=== PATIENT | female | born 1945 | race Caucasian/White ===

== ENCOUNTER 2018-04-14 11:10 | Emergency (ER) | payer MEDICARE, OTHER ==
[~2018-04-14] VITALS: Ht 157.5 cm; Wt 67.8 kg
[~2018-04-14 11:10] MED LIST: ESTR1TAB37 PO; GABA300C10 PO; METH750T2 PO; SOLI10TA2 PO; TRAM50TA2 PO
[2018-04-14] MEDS ORDERED: SODIUM CHLORIDE FLUSH 10ML SYR IVF ONE (12:00)
[2018-04-14 12:18] LABS: BASOPHILS # (AUTO) 0.05 x10^3/uL (0-0.1); BASOPHILS % (AUTO) 1 % (0-1); EOSINOPHILS # (AUTO) 0.09 x10^3/uL (0-0.4); EOSINOPHILS % (AUTO) 2 % (1-7); LYMPHOCYTES # (AUTO) 1.27 x10^3/uL (1-3.4); LYMPHOCYTES % (AUTO) 24 % (22-44); MD NO; MEAN CORPUSCULAR HEMOGLOBIN 32.7 pg (27.0-34.8); MEAN CORPUSCULAR VOLUME 96.1 fL (80-100); MEAN PLATELET VOLUME 8.3 fL (7.4-10.4); MONOCYTES # (AUTO) 0.48 x10^3/uL (0.2-0.8); MONOCYTES % (AUTO) 9 % (2-9); NEUTROPHILS # (AUTO) 3.34 x10^3/uL (1.8-6.8); NEUTROPHILS % (AUTO) 64 % (42-75); PLATELET COUNT 253 x10^3/uL (130-400); RED BLOOD COUNT 4.84 x10^6/uL (3.82-5.3)
[2018-04-14 12:29] LABS: INTERNATIONAL NORMALIZED RATIO 1.07 (0.93-1.1); PROTHROMBIN TIME 11.3 Seconds (9.6-11.5)
[2018-04-14 12:33] LABS: ALBUMIN 3.4 g/dL (3.4-5.0); ANION GAP 7 mmol/L (5-15); CALCIUM 8.8 mg/dL (8.5-10.1); CHLORIDE 112 mmol/L (98-107)
[2018-04-14 12:37] LABS: ALANINE AMINOTRANSFERASE 48 U/L (12-78); ALKALINE PHOSPHATASE 87 U/L (45-117); BILIRUBIN,TOTAL 0.6 mg/dL (0.2-1.0); CREATININE 1.02 mg/dL (0.55-1.02); TOTAL PROTEIN 6.6 g/dL (6.4-8.2)
[2018-04-14] MEDS ORDERED: OMNIPAQUE 350 MG/ML, 100ML BOTTLE ONE (13:08)
[2018-04-14 13:26] VITALS: BP 173/76
== END 2018-04-14 13:50 | disposition other institution (70) ==
LOC: ED 13:18
DX: R19.7 Diarrhea, unspecified (principal); R10.31 Right lower quadrant pain; R10.11 Right upper quadrant pain; R10.33 Periumbilical pain; Z90.49 Acquired absence of other specified parts of digestive tract; Z90.710 Acquired absence of both cervix and uterus
CPT/HCPCS: 36415; 74177; 80053; 83690; 85025; 85610; 85730; 99284; Q9967

== ENCOUNTER → 2018-04-30 | Outpatient (CLI) | payer MEDICARE, OTHER ==
[2018-04-30 15:10] LABS: HCT (SEDRATE) 46.9 % (34.6-47.8)
[2018-05-04 14:22] LABS: ANA SCREEN NEGATIVE (Negative)
== END | disposition home or self-care (01) ==
LOC: LAB 14:29
PROVIDERS: ATTEND Nurse Practitioner
DX: M05.9 Rheumatoid arthritis with rheumatoid factor, unspecified (principal)
CPT/HCPCS: 36415; 84550; 85651; 86038; 86200; 86431

== ENCOUNTER → 2019-04-07 | Outpatient (CLI) | payer MEDICARE, OTHER ==
[~2019-04-07] MED LIST changes: +REGADENOSON 0.4 MG/5 ML SYRINGE ONE
== END | disposition home or self-care (01) ==
LOC: CFH 06:53
PROVIDERS: ATTEND Internal Medicine Cardiovascular Disease
DX: I08.8 Other rheumatic multiple valve diseases (principal); I25.2 Old myocardial infarction; I10 Essential (primary) hypertension
CPT/HCPCS: 78452; 93017; 93306; A9502; J2785

== ENCOUNTER → 2019-05-19 | Outpatient (CLI) | payer MEDICARE, OTHER ==
[~2019-05-19] MED LIST changes: -REGADENOSON 0.4 MG/5 ML SYRINGE ONE
== END | disposition home or self-care (01) ==
LOC: RAD 11:57
PROVIDERS: ATTEND Physician Assistant Medical
DX: J84.10 Pulmonary fibrosis, unspecified (principal)
CPT/HCPCS: 71045; 78582; A9540; A9558

== ENCOUNTER → 2020-04-02 | Outpatient (CLI) | payer MEDICARE, OTHER ==
[~2020-04-02] MED LIST changes: +AMLO-150 PO; +FLUT1AER INH; +HYDR-3653 PO; +LISI-170 PO; +OXYB5TAB10 PO
== END | disposition home or self-care (01) ==
LOC: RAD 10:12
PROVIDERS: ATTEND Internal Medicine
DX: R91.8 Other nonspecific abnormal finding of lung field (principal); J84.10 Pulmonary fibrosis, unspecified
CPT/HCPCS: 71250

== ENCOUNTER 2020-04-04 08:16 | Day surgery (SDC) | payer MEDICARE, OTHER ==
[~2020-04-04] VITALS: Ht 154.9 cm; Wt 68.5 kg
[~2020-04-04 08:16] MED LIST changes: +ACETAMINOPHEN 325 MG TABLET PO PRN; -AMLO-150 PO; +EPHEDRINE 50 MG/ML, 1ML IVPush PRN; -FLUT1AER INH; -HYDR-3653 PO; +LABETALOL 5MG/ML, 20ML IV PRN; -LISI-170 PO; +ONDANSETRON 2MG/ML, 2ML IVPush PRN; -OXYB5TAB10 PO; +OXYcodone 5 MG/5 ML ORAL.SOL UDC PO PRN; +PROMETHAZINE 25 MG/ML, 1ML IVPush PRN; +hydrALAzine 20 MG/ML, 1ML IV PRN
[2020-04-04] MEDS ORDERED: PROPOFOL 50 ML ONE ×2 (09:21→11:10)
[2020-04-04] MEDS ORDERED: FENTANYL PF 100 MCG/2ML ONE ×2 (09:21→12:47)
[2020-04-04] MEDS ORDERED: ROCURONIUM 10MG/ML,5ML ONE (09:22)
[2020-04-04] MEDS ORDERED: DEXAMETHASONE 4 MG/ML, 1ML ONE (09:22)
[2020-04-04] MEDS ORDERED: SUCCINYLCHOLINE 20 MG/ML, 10ML ONE (09:22)
[2020-04-04] MEDS ORDERED: ONDANSETRON 2MG/ML, 2ML ONE (09:22)
[2020-04-04] MEDS ORDERED: PROPOFOL 10 MG/ML, 20ML ONE (09:22)
[2020-04-04] MEDS ORDERED: FLUT1AER INH (09:27)
[2020-04-04] MEDS ORDERED: HYDR-3653 PO (09:27)
[2020-04-04] MEDS ORDERED: OXYB5TAB10 PO (09:27)
[2020-04-04] MEDS ORDERED: LACTATED RINGERS 1,000 ML IV SCH (09:30)
[2020-04-04] MEDS ORDERED: CHLORHEXIDINE 15 ML UDC MM ONE (09:30)
[2020-04-04 09:53] VITALS: BP 123/74
[2020-04-04] MEDS ORDERED: LISI-170 PO (09:53)
[2020-04-04] MEDS ORDERED: AMLO-150 PO (09:53)
[2020-04-04] MEDS ORDERED: SUGAMMADEX 200 MG/2 ML IVPush ONE (10:45)
[2020-04-04] MEDS ORDERED: PHENYLEPHRINE 10 MG/ML ONE (11:17)
[2020-04-04] MEDS ORDERED: LIDOCAINE 2%, 20ML ONE (12:42)
[2020-04-04] MEDS ORDERED: LIDOCAINE GEL 2%, 5ML ONE (12:42)
[2020-04-04] MEDS ORDERED: OXYcodone 5 MG/5 ML ORAL.SOL UDC ONE (12:47)
[2020-04-04] MEDS: FENTANYL PF 100 MCG/2ML IV PRN ×2 (12:54→13:05)
[2020-04-16] MEDS ORDERED: DOXY100T PO (15:14)
[2020-04-16] MEDS ORDERED: AMOX1TAB12 PO (15:14)
[2020-04-16] MEDS ORDERED: HYDR-3240 PO (15:18)
== END 2020-04-04 14:25 | disposition home or self-care (01) ==
LOC: OUT 08:16
PROVIDERS: ATTEND Internal Medicine
DX: R59.1 Generalized enlarged lymph nodes (principal); J18.9 Pneumonia, unspecified organism; J45.909 Unspecified asthma, uncomplicated; Z20.828 Contact with and (suspected) exposure to other viral communicable diseases; Z79.891 Long term (current) use of opiate analgesic; Z79.899 Other long term (current) drug therapy; Z87.891 Personal history of nicotine dependence; Z88.1 Allergy status to other antibiotic agents
CPT/HCPCS: 31624; 31627; 31628; 31652; 71045; 88112; 88172; 88173; 88177; 88305; J0330; J1100; J2370; J2704; J3010; J7120; U0003; J2405

== ENCOUNTER → 2020-04-12 | Outpatient (CLI) | payer MEDICARE, OTHER ==
[~2020-04-12] MED LIST changes: -ACETAMINOPHEN 325 MG TABLET PO PRN; +AMLO-150 PO; -EPHEDRINE 50 MG/ML, 1ML IVPush PRN; +FLUT1AER INH; +HYDR-3653 PO; -LABETALOL 5MG/ML, 20ML IV PRN; +LISI-170 PO; -ONDANSETRON 2MG/ML, 2ML IVPush PRN; +OXYB5TAB10 PO; -OXYcodone 5 MG/5 ML ORAL.SOL UDC PO PRN; -PROMETHAZINE 25 MG/ML, 1ML IVPush PRN; -hydrALAzine 20 MG/ML, 1ML IV PRN
== END | disposition home or self-care (01) ==
LOC: PETCFH 08:28
PROVIDERS: ATTEND Internal Medicine
DX: R91.8 Other nonspecific abnormal finding of lung field (principal); J84.10 Pulmonary fibrosis, unspecified; J98.11 Atelectasis
CPT/HCPCS: 78815; A9552

== ENCOUNTER → 2020-10-08 | Outpatient (CLI) | payer MEDICARE, OTHER ==
[~2020-10-08] MED LIST changes: +AMOX1TAB12 PO; +DOXY100T PO; +HYDR-2214 PO; +METH-640 PO; -METH750T2 PO
== END | disposition home or self-care (01) ==
LOC: CFH 13:28
PROVIDERS: ATTEND Internal Medicine
DX: J84.10 Pulmonary fibrosis, unspecified (principal); R05 Cough
CPT/HCPCS: 71250

== ENCOUNTER 2020-10-30 12:14 | Day surgery (SDC) | payer MEDICARE, OTHER ==
[~2020-10-30] VITALS: Ht 152.4 cm; Wt 70.1 kg
[2020-10-30 12:36] VITALS: BP 143/77
[2020-10-30] MEDS ORDERED: OMNIPAQUE 180 MG/ML, 10ML VIAL ONE (13:54)
[2020-10-30] MEDS ORDERED: HYDROcodone/APAP 7.5-325MG/15ML UDC PO PRN (14:30)
[2020-10-30] MEDS ORDERED: HYDROcodone/APAP 7.5-325MG/15ML UDC ONE (14:34)
== END 2020-10-30 16:46 | disposition home or self-care (01) ==
LOC: OUT 12:14 → EDSTATUS 13:00 → OUT 16:46
PROVIDERS: ATTEND Neurological Surgery
DX: M54.5 Low back pain (principal); M25.78 Osteophyte, vertebrae; I10 Essential (primary) hypertension; I48.91 Unspecified atrial fibrillation; J45.909 Unspecified asthma, uncomplicated; Z79.899 Other long term (current) drug therapy; Z98.1 Arthrodesis status
CPT/HCPCS: 62284; 72132; Q9965